=== PATIENT | male | born 1990 | race Caucasian/White ===

== ENCOUNTER 2020-08-14 07:32 | Emergency (ER) | payer OTHER, SELFPAY ==
[2020-08-14 07:50] VITALS: BP 167/76; PULSE 78; RESP 18; TEMP 36.3; O2SAT 100
--- NOTE | 2020-08-14 08:07 | ED.GENADULT ---
HPI - General Adult General Chief complaint: Upper Respiratory Infection Stated complaint: here for covid swab, st, cough, lost tast/smell Time Seen by Provider: 08/14/20 07:48 Source: patient Mode of arrival: ambulatory Limitations: no limitations History of Present Illness HPI narrative: 29 years old white male presents with fever, chills, sore throat, body aches started less than 1 week ago. Patient lost taste and smell in the last 24 hours. Patient reported that his mom had similar symptoms waiting for the [facility] test result. Basically patient came today to get the Covid testing done. Was told to go to the emergency room to get the test done. Patient declined any blood work-up or even chest x-ray. Review of Systems Review of Systems: Narrative: CONSTITUTIONAL: Denies fever, chills, or sweats. EYES: Denies visual changes, redness, or discharge. ENT: Denies rhinorrhea, congestion, sore throat, or otalgia. CARDIOVASCULAR: Denies chest pain, palpitations, or edema. RESPIRATORY: Coughing GASTROINTESTINAL: Denies abdominal pain, nausea, vomiting, or diarrhea. GENITOURINARY: Denies dysuria or hematuria. SKIN: Denies rash or itching. MUSCULOSKELETAL: Denies back pain, joint pain, or myalgia. NEUROLOGIC: Denies headache, numbness, or weakness. PSYCHIATRIC: Denies anxiety or depression. PMFSH Social History Social History Gender identity (if verbalized by the patient): Male Exam Narrative: Exam Narrative: General appearance: Well-developed, well-nourished Skin: Normal color Eyes: Clear conjunctiva Neck: Supple, nontender Chest and respiratory: Airway patent, no respiratory distress, no accessory muscle use Heart: Regular rate/rhythm Neurologic: Alert and oriented ?3, Course Course Emergency Course: Stable Vital Signs Vital signs: Vital Signs Temperature 36.3 C L 08/14/20 07:50 Pulse Rate 78 08/14/20 07:50 Respiratory Rate 18 08/14/20 07:50 Blood Pressure 167/76 H 08/14/20 07:50 Pulse Oximetry 100 08/14/20 07:50 Temperature 36.3 C L 08/14/20 07:50 Pulse Rate 78 08/14/20 07:50 Respiratory Rate 18 08/14/20 07:50 Blood Pressure 167/76 H 08/14/20 07:50 Pulse Oximetry 100 08/14/20 07:50 Medical Decision Making MDM Narrative Medical decision making narrative: Patient came with Covid symptoms, Would like to get Covid test done, declined any other evaluation including labs or chest x-ray. Vital Signs Vital Signs: Vital Signs Temperature 36.3 C L 08/14/20 07:50 Pulse Rate 78 08/14/20 07:50 Respiratory Rate 18 08/14/20 07:50 Blood Pressure 167/76 H 08/14/20 07:50 Pulse Oximetry 100 08/14/20 07:50 Temperature 36.3 C L 08/14/20 07:50 Pulse Rate 78 08/14/20 07:50 Respiratory Rate 18 08/14/20 07:50 Blood Pressure 167/76 H 08/14/20 07:50 Pulse Oximetry 100 08/14/20 07:50 Critical Care Time Critical Care Time Critical Care Time: No Discharge Plan Discharge Clinical Impression: Contact with and suspected exposure to communicable disease, Upper respiratory infection Patient Disposition: Home, Self-Care Condition: Stable Instructions: Pharyngitis (ED), Viral Syndrome (ED) Additional Instructions: Discharge instructions Remain isolated at home, take Tylenol, ibuprofen as needed for pain, fever and sore throat Use the mask, 6 feet distance, wash hands Follow-up/Referrals: Sathya,Tolu Ellis MD [Primary Care Provider] -
--- NOTE | 2020-08-14 08:10 | PC.NURSE ---
Pt told this RN that he didnt want the chest Xray. all I want is the covid swab . I need it for my job .
--- NOTE | 2020-08-14 08:17 | PC.NURSE ---
Pt left through ambulance bay door.
== END 2020-08-14 08:17 | disposition left against medical advice (07) ==
PROVIDERS: Emergency Provider Emergency Medicine; PCP Family Medicine Sports Medicine
DX: J06.9 Acute upper respiratory infection, unspecified (principal); Z20.828 Contact with and (suspected) exposure to other viral communicable diseases
CPT/HCPCS: 99281

== ENCOUNTER 2023-02-22 08:11 | Emergency (ER) | payer OTHER, SELFPAY ==
--- NOTE | 2023-02-22 08:33 | ED.EYEPROB ---
HPI - Eye Problem General Chief complaint: Eye Problems Stated complaint: bilateral eye irritation Time Seen by Provider: 02/22/23 08:32 Source: patient Mode of arrival: ambulatory Limitations: no limitations History of Present Illness HPI Narrative: Patient is a 32-year-old male who presents with bilateral eye irritation that was crusted shut this morning along with sore throat that started yesterday. Patient states was recently treated for pinkeye. Patient has seasonal allergies and does take daily allergy medicine. Patient states he has constant yellow-green discharge from eyes and they are burning. Denies any fever, chills, ear pain, cough, shortness of breath, nausea, vomiting, diarrhea Related Data Allergies Allergy/AdvReac Type Severity Reaction Status Date / Time No Known Allergies Allergy Verified 02/22/23 08:52 Review of Systems Review of Systems: All systems reviewed & are unremarkable except as noted in HPI and below Constitutional: Constitutional: Denies body ache(s), Denies fever(s), Denies headache(s), Denies malaise and Denies weakness Eyes: Eyes: Denies blurry vision, Reports eye discharge, Reports irritation, Reports itchy eyes, Denies loss of vision and Reports eye pain ENT: Denies otalgia, Denies headache(s), Denies nasal discharge, Denies sinus pain and Denies sore throat Cardiovascular: Cardiovascular: Denies chest pain, Denies irregular heart rhythm and Denies dyspnea Respiratory: Respiratory: Denies dyspnea Gastrointestinal: Gastrointestinal: Denies abdominal pain, Denies diarrhea, Denies nausea and Denies vomiting Musculoskeletal: Musculoskeletal: Denies back pain, Denies myalgias and Denies arthralgias Integumentary/Breasts: Skin/Breast: Denies pruritus and Denies rash Neurologic: Denies headache(s), Denies loss of vision and Denies weakness Psychiatric: Psychiatric: Reports no additional psychiatric complaints Allergic/Immunologic: Allergic/Immunologic: Reports itchy eyes PMFSH Social History Social History Gender identity (if verbalized by the patient): Male Comments At time of signature, agree with nursing past medical, surgical, social and family history. There is no relevant family history pertinent to the presenting complaint. Exam Const: General: cooperative, healthy appearing, comfortable, no acute distress and well nourished Nutritional Appearance: well nourished Orientation/consciousness: patient oriented x3 Limitations: no limitations HENMT: Head: normal to inspection, normocephalic and atraumatic Ears: external ears normal Face/Nose/Sinus: Normal external nose present, normal facial exam and face symmetric Face and sinus: normal facial exam and face symmetric Mouth: Yes lip normal Eyes: General: appearance normal, both eyes and all related structures Visual Johns: normal visual johns by confrontation Alignment and Position: alignment normal and position normal Periorbital: periorbital findings normal Eyelids: eyelids normal Conjunctivae: conjunctival abnormality bilateral conjunctival injection diffuse and discharge mucoid Sclera: scleral abnormality bilateral scleral injection diffuse Pupils: Equal, round and reactive pupils present EOM: EOMs intact bilaterally Direct Ophthalmoscopy: no photophobia Other: No hyphema, no foreign body under the lids. Neck: Neck: normal visual inspection, full ROM, no lymphadenopathy and no meningeal signs Chest: Chest palpation & inspection: normal inspection of the chest Resp: Effort & Inspection: normal respiratory effort and able to speak in complete sentences Auscultation: clear to auscultation bilaterally Cardio: Rate: regular rate Rhythm: regular rhythm Heart sounds: S1 normal heart sound present and S2 normal heart sound present GI: Inspection: normal to inspection Skin: General skin exam: normal color and no rashes or lesions noted Neuro: General: patient oriented x3, moves all extremities and n
[2023-02-22 08:42] VITALS: BP 154/80; PULSE 57; RESP 18; TEMP 36.8; O2SAT 100
== END 2023-02-22 09:05 | disposition home or self-care (01) ==
PROVIDERS: Emergency Provider Nurse Practitioner Family
DX: H10.9 Unspecified conjunctivitis (principal)
CPT/HCPCS: 99213; G0463